=== PATIENT | female | born 1970 | race Caucasian/White ===

== ENCOUNTER 2020-01-28 02:10 | Emergency (ER) | payer BC, OTHER ==
[2020-01-28 02:24] VITALS: BP 152/74; PULSE 84
--- NOTE | 2020-01-28 03:14 | EDM.PDOC ---
ED HPI GENERAL MEDICAL PROBLEM - General Chief Complaint: Respiratory Problem Stated Complaint: SOB Time Seen by Provider: 01/28/20 02:20 Source of Information: Reports: Patient History Limitations: Reports: No Limitations - History of Present Illness INITIAL COMMENTS - FREE TEXT/NARRATIVE: This is a 49-year-old female. She comes tonight because she has many symptoms. She has had a cough on and off for the last week always dry. No sinus congestion no sore throat she has had no fever. Days she has had an on and off headache but it has not been severe. Tonight when she was trying to sleep she seemed to get short of breath and more severe short of breath though she indicates she has been "short of breath" the entire week. Then she noted some tightness in her right chest going down her right arm and she has been having tingling in her fingers she has been lightheaded and dizzy. She is also had some mild diarrhea today. She complains of an upset stomach but no vomiting. She has been somewhat worried about this coronavirus because she works at a bank but they have been very careful about letting people into the bag and taking precautions of wearing gloves and masks when people come to see them and they let them in. She does not appear to be in great distress at this time. Due to her symptoms and her lack of a temperature and myalgias and extreme fatigue I do not believe that she has coronavirus. She seems to be very anxious and her respiratory rate is in the 20s and her pulse ox is 100%. 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 Neurological History: Reports: None Psychiatric History: Reports: None Endocrine/Metabolic History: Reports: None Hematologic History: Reports: None Oncologic (Cancer) History: Reports: None Dermatologic History: Reports: None - Past Surgical History Head Surgeries/Procedures: Reports: None GI Surgical History: Reports: None Female Surgical History: Reports: D&C, Hysterectomy Endocrine Surgical History: Reports: None Neurological Surgical History: Reports: None Oncologic Surgical History: Reports: None Dermatological Surgical History: Reports: None Social & Family History - Family History Family Medical History: Noncontributory - Tobacco Use Smoking Status *Q: Never Smoker - Caffeine Use Caffeine Use: Reports: None Other Caffeine Use: Daily - Recreational Drug Use Recreational Drug Use: No ED ROS GENERAL - Review of Systems Review Of Systems: See Below Constitutional: Denies: Fever, Chills, Malaise HEENT: Denies: Rhinitis, Sinus Problem Respiratory: Reports: Shortness of Breath, Cough. Denies: Wheezing, Sputum Cardiovascular: Reports: Chest Pain Endocrine: Reports: No Symptoms GI/Abdominal: Reports: Diarrhea, Nausea. Denies: Abdominal Pain, Vomiting : Reports: No Symptoms Musculoskeletal: Reports: No Symptoms Skin: Reports: No Symptoms Neurological: Reports: Dizziness, Headache, Tingling Psychiatric: Reports: Anxiety Hematologic/Lymphatic: Reports: No Symptoms ED EXAM, GENERAL - Physical Exam Exam: See Below Exam Limited By: No Limitations General Appearance: Alert, WD/WN, Anxious Eye Exam: Bilateral Eye: Normal Inspection Ears: Normal External Exam, Normal Canal, Normal TMs Nose: Normal Inspection. No: Nasal Drainage, Clear Rhinorrhea Throat/Mouth: Normal Inspection, Normal Lips, Normal Voice, No Airway Compromise Head: Normocephalic Neck: Supple Respiratory/Chest: No Respiratory Distress, Lungs Clear, Normal Breath Sounds Cardiovascular: Regular Rate, Rhythm, No Murmur GI/Abdominal: Soft, Non-Tender Back Exam: Full Range of Motion Extremities: Normal Inspection, Normal Range of Motion Neurological: Alert, Oriented Psychiatric: Anxious Skin Exam: Warm, Dry EKG INTERPRETATION EKG Date: 01/28/20 Time: 03:25 EKG Interpretation Comments: Normal sinus rhythm rate of 66, no acute ST or T wave changes, no acute ischemia is noted, she does have a re-early repolarization pattern noted. Course - Vital Signs Last Recorded V/S: Last Vital Signs Temp 97.1 F 01/28/20 02:20 Pulse 84 01/28/20 02:20 Resp 18 01/28/20 02:20 BP 152/74 H 01/28/20 02:20 Pulse Ox 100 01/28/20 02:20 - Orders/Labs/Meds Orders: Active Orders 24 hr Category Date Time Status EKG 12 Lead [EKG Documentation Completion] [RC] STAT Care 01/28/20 03:06 Active Chest 2V [CR] Stat Exams 01/28/20 03:05 Taken Labs: Laboratory Tests 01/28/20 01/28/20 Range/Units 03: 03:28 WBC 9.04 (3.98-10.04) K/mm3 RBC 4.82 (3.98-5.22) M/mm3 Hgb 13.7 (11.2-15.7) gm/dl Hct 40.7 (34.1-44.9) % MCV 84.4 (79.4-94.8) fl MCH 28.4 (25.6-32.2) pg MCHC 33.7 (32.2-35.5) g/dl RDW Std Deviation 38.9 (36.4-46.3) fL Plt Count 330 (182-369) K/mm3 MPV 10.4 (9.4-12.3) fl Neut % (Auto) 58.2 (34.0-71.1) % Lymph % (Auto) 30.0 (19.3-51.7) % [place] % (Auto) 10.0 (4.7-12.5) % Eos % (Auto) 1.0 (0.7-5.8) Baso % (Auto) 0.7 (0.1-1.2) % Neut # (Auto) 5.27 (1.56-6.13) K/mm3 Lymph # (Auto) 2.71 (1.18-3.74) K/mm3 [place] # (Auto) 0.90 H (0.24-0.36) K/mm3 Eos # (Auto) 0.09 (0.04-0.36) K/mm3 Baso # (Auto) 0.06 (0.01-0.08) K/mm3 Sodium 142 (136-145) mEq/L Potassium 3.5 (3.5-5.1) mEq/L Chloride 107 (98-107) mEq/L Carbon Dioxide 24 (21-32) mEq/L Anion Gap 14.5 (5-15) BUN 11 (7-18) mg/dL Creatinine 0.8 (0.55-1.02) mg/dL Est Cr Clr Drug Dosing 77.38 mL/min Estimated GFR (MDRD) > 60 (>60) mL/min BUN/Creatinine Ratio 13.8 L (14-18) Glucose 98 (74-106) mg/dL Calcium 9.4 (8.5-10.1) mg/dL Total Bilirubin 0.4 (0.2-1.0) mg/dL AST 19 (15-37) U/L ALT 33 (14-59) U/L Alkaline Phosphatase 56 (46-116) U/L Troponin I < 0.017 (0.00-0.056) ng/mL Total Protein 7.1 (6.4-8.2) g/dl Albumin 4.1 (3.4-5.0) g/dl Globulin 3.0 gm/dL Albumin/Globulin Ratio 1.4 (1-2) Meds: Medications Discontinued Medications Generic Name Dose Route Start Last Admin Trade Name Freq PRN Reason Stop Dose Admin Lorazepam 1 mg 01/28/20 04:20 01/28/20 04:26 Ativan PO 01/28/20 04:21 1 mg ONETIME ONE Administration - Radiology Interpretation Free Text/Narrative:: Chest x-ray does not show any acute changes or infiltrates. - Re-Assessments/Exams Free Text/Narrative Re-Assessment/Exam: 01/28/20 04:20 The patient was noted in x-ray to be breathing rapidly and complaining of tingling and numbness and dizziness. She was also noted by myself in the room to have a respiratory rate of 22 at the time she was complaining some tingling in her fingers. I explained to her that by blowing off carbon dioxide she changes the pH of her blood that makes her nerves not work and that is why she gets the tingling and if it lasts long enough she can get spasms in her forearms. I am going to give her an Ativan 1 mg p.o. to see if that does not help calm her down and ease up some of her anxiety. 01/28/20 04:57 Spoke to the patient regarding her EKG and chest x-ray. Also about the blood work that was absolutely normal including a normal troponin. She apparently has a family history of heart problems and her brother had a heart attack in his 30s. She has had stress test before they were all normal. Despite us seeing everything being negative she could still have some cardiac issues that were not picking up and I encouraged her to call her family doctor on Thursday and possibly get another stress test to give her peace of mind. She does admit that she has been somewhat anxious about work and the situations in the world in the community. Departure - Departure Time of Disposition: 04:58 Disposition: Home, Self-Care 01 Condition: Fair Clinical Impression: Chest pressure, Upper respiratory symptom, Mild anxiety - Discharge Information *PRESCRIPTION DRUG MONITORING PROGRAM REVIEWED*: Not Applicable *COPY OF PRESCRIPTION DRUG MONITORING REPORT IN PATIENT TIP: Not Applicable Instructions: Nonspecific Chest Pain, Adult, [id number] Referrals: PCP,None [Primary Care Provider] - Forms: ED Department Discharge Additional Instructions: We check your heart with an EKG and blood work that was all normal. This was just a small slice of time and we are seeing everything being normal. I would encourage you to call your family doctor on Thursday and talk to them about the symptoms you are having to see if another stress test might be appropriate to check out your heart and give you some peace of mind. If your symptoms worsen dramatically especially with sweating along with severe shortness of breath and the feeling like an elephant is stepping on your chest please return to the ER for reevaluation. Sepsis Event Note - Evaluation Sepsis Screening Result: No Definite Risk - Focused Exam Vital Signs: Vital Signs Temp Pulse Resp BP Pulse Ox 01/28/20 02:20 97.1 F 84 18 152/74 H 100 Date Exam was Performed: 01/28/20 Time Exam was Performed: 04:57 - My Orders Last 24 Hours: My Active Orders 01/28/20 03:05 Chest 2V [CR] Stat 01/28/20 03:06 EKG 12 Lead [EKG Documentation Completion] [RC] STAT - Assessment/Plan Last 24 Hours: My Active Orders 01/28/20 03:05 Chest 2V [CR] Stat 01/28/20 03:06 EKG 12 Lead [EKG Documentation Completion] [RC] STAT
[2020-01-28] MEDS ORDERED: LORazepam 1 MG Tab PO ONE (04:20)
--- NOTE | 2020-01-28 09:26 | CR ---
Chest: 2 views of the chest were obtained. Comparison: No prior chest x-ray, previous chest CT of 09/03/15. Heart size and mediastinum are normal. Lungs are clear with no acute parenchymal change. Bony structures are unremarkable. Impression: 1. Nothing acute is seen on 2 view chest x-ray. Diagnostic code #1 Study was dictated in MDT
== END 2020-01-28 05:15 | disposition home or self-care (01) ==
LOC: JD.ED 02:10
DX: R05 Cough (principal); F41.9 Anxiety disorder, unspecified
CPT/HCPCS: 36415; 71046; 80053; 84484; 85025; 93005; 99285; A9270; 93010; 99283